=== PATIENT | male | born 1990 | race African-American/Black ===

== ENCOUNTER 2020-09-21 12:55 | Emergency (ER) | payer MEDICAID, SELFPAY ==
--- NOTE | ~2020-09-21 | XR_ITS ---
EXAMINATION: XR ANKLE, RIGHT CLINICAL INFORMATION: Pain. COMPARISON: None. TECHNIQUE: AP, lateral, and mortise views of the right ankle. FINDINGS: Nondisplaced fracture through the base of the enthesophyte at the medial malleolus. Prominent circumferential soft tissue swelling. No dislocation. Small tibiotalar joint effusion. No osseous erosion. XR/XR ankle RT min 3V IMPRESSION: Nondisplaced fracture through the base of a medial malleolar enthesophyte. Tibiotalar joint effusion and prominent circumferential soft tissue swelling.
[2020-09-21 13:03] VITALS: BP 117/69; PULSE 82; RESP 16; TEMP 35.8; O2SAT 99; BMI 31.0
--- NOTE | 2020-09-21 13:07 | ED_ITS ---
HPI - General Adult General Chief complaint: Extremity Injury, Lower Stated complaint: ankle inj Time Seen by Provider: 09/21/20 13:07 Source: patient Limitations: no limitations History of Present Illness HPI narrative: Patient presents with right ankle pain after twisting it while walking and tripping on a stump. Pain is in the medial and lateral aspects of the right ankle pain increases with range of motion or weight-bearing. Positive swelling. Pain is 7/10. No other complaints at this time. Related Data Previous Rx's Medication Instructions Recorded tramadol 50 mg PO TID PRN #14 tab 09/21/20 Allergies Allergy/AdvReac Type Severity Reaction Status Date / Time ibuprofen [From Motrin] Allergy Hives Verified 09/21/20 13:09 Review of Systems Constitutional: Constitutional: Denies chills, Denies fever(s) and Denies headache(s) ENT: Denies headache(s) Cardiovascular: Cardiovascular: Denies chest pain and Denies dyspnea Respiratory: Respiratory: Denies cough and Denies dyspnea Gastrointestinal: Gastrointestinal: Denies diarrhea, Denies nausea and Denies vomiting Musculoskeletal: Musculoskeletal: Reports arthralgias and Denies muscle weakness Comments: Right ankle pain Neurologic: Denies headache(s) Endocrine: Endocrine: Reports no additional endocrine complaints and Reports as per HPI Allergic/Immunologic: Allergic/Immunologic: Reports no additional allergic/immunologic complaints [facility] Past Medical History Attestation statement: The following information was validated with the patient. Medical History Cyst Social History Social History Alcohol intake: never Patient Tobacco Use Status: Never used Tobacco Use of substances other than those prescribed or required for medical reasons: No Advance Directives: No Advance Directives Information Provided: No Physical Exam Vital Signs: Vital Signs: Last Vital Signs Temp 96.4 F L 09/21/20 13:03 Pulse 82 09/21/20 13:03 Resp 16 09/21/20 13:03 BP 117/69 09/21/20 13:03 Pulse Ox 99 09/21/20 13:03 Body Mass Index 31.0 vital signs have been reviewed as normal and appeared to be correct. Blood pressure normal. Heart rate normal. Respiration rate normal. Temperature normal. Oxygen saturation normal. Appearance: Alert. Oriented X3. No acute distress. Head: Normal external exam. Normocephalic. Atraumatic. Eyes: PERRLA. EOMI. ENT: Pharynx normal. Uvula midline. Moist mucous membranes. CVS: Heart regular rate and rhythm no murmurs and rubs Respiratory: Breath sounds are clear to auscultation bilaterally. No accessory muscle use noted. Skin: Skin warm dry no ecchymosis no rashes Extremities: Right ankle lateral medial malleolus tenderness positive edema noted positive sensation positive pulses Neuro: Oriented X 3. No motor deficit. No sensory deficit. Reflexes normal. Course Course Course Narrative: Right ankle fracture Right ankle sprain Right ankle contusion X-ray right ankle pending systems consistent with right ankle sprain most likely plan Aircast crutches Patient placed in a posterior Ortho Glass splint tolerated well patient instructed to follow-up with orthopedics nonweightbearing at this time. Medical Decision Making Imaging Data ankle: Radiologist's impression: [address] [id number] ReportSigned Patient: Yessenia PhillipsMR#: [id number]: [id number]:[id number]/Sex: 29 / MADM Date: 09/21/20Loc: HO.EDAttending Dr: Ordering Physician: GAURI PIKE MD Date of Service: 09/21/20 Procedure(s): XR ankle RT min 3V Accession Number(s): [id number] cc: GAURI PIKE MD~ EXAMINATION: XR ANKLE, RIGHT CLINICAL INFORMATION: Pain. COMPARISON: None. TECHNIQUE: AP, lateral, and mortise views of the right ankle. FINDINGS: Nondisplaced fracture through the base of the enthesophyte at the medial malleolus. Prominent circumferential soft tissue swelling. No dislocation. Small tibiotalar joint effusion. No osseous erosion. XR/XR ankle RT min 3V IMPRESSION: Nondisplaced fracture through the base of a medial malleolar enthesophyte. Tibiotalar joint effusion and prominent circumferential soft tissue swelling. Dictated By:IZAIAH MARIN MDSigned By:<Electronically signed by IZAIAH MARIN MD in OV>09/21/20 1335 DD/ 1325TD/TT: Veterinary Technology Instructor: SR Discharge Plan Discharge Clinical Impression: Ankle fracture, right Patient Disposition: Home, Self-Care Additional Instructions: Rest ice elevation Splint nonweightbearing and use crutches Prescriptions: New tramadol 50 mg tablet 50 mg PO TID PRN (Reason: pain) Qty: 14 RF: 0 Referrals: Angela Galan MD [Physician] - 2 days
[2020-09-21] MEDS: traMADoL HCL 50 MG TABLET PO (13:44)
== END 2020-09-21 14:29 | disposition home or self-care (01) ==
PROVIDERS: Emergency Provider Emergency Medicine
DX: S82.54XA Nondisplaced fracture of medial malleolus of right tibia, initial encounter for closed fracture (principal); X50.1XXA Overexertion from prolonged static or awkward postures, initial encounter; Y93.01 Activity, walking, marching and hiking; Y92.9 Unspecified place or not applicable; Y99.9 Unspecified external cause status
CPT/HCPCS: 29515; 73610; 99283; 99284